=== PATIENT | male | born 1955 | race American Indian/Alaskan Native ===

== ENCOUNTER 2019-05-03 16:46 | Emergency (ER) | payer OTHER ==
[2019-05-03] MEDS ORDERED: IPRATROPIUM 0.02% NEBU 2.5 ML IH ONE (18:32)
[2019-05-03] MEDS ORDERED: ALBUTEROL 2.5 MG/3 ML NEBU IH ONE (18:32)
[2019-05-03] MEDS ORDERED: dexAMETHasone 20 MG/5 ML VIAL IV ONE (18:32)
--- NOTE | 2019-05-03 18:32 | Event Note ---
ED Screening Note ED Screening Note: right sided chest pain that began 4 days ago states it hurts to breathe and worse with movements and coughing +cough cloudy sputum production +wheezing +sob PMHx COPD uses albuterol inhaler +smoker This initial assessment/diagnostic orders/clinical plan/treatment(s) is/are subject to change based on patients health status, clinical progression and re- assessment by fellow clinical providers in the ED. Further treatment and workup at subsequent clinical providers discretion. Patient/guardian urged not to elope from the ED as their condition may be serious if not clinically assessed and managed. Initial orders include: CXR, labs, neb tx, steroids
--- NOTE | 2019-05-03 19:06 | XRay Report ---
CHEST 2 VIEWS INDICATION / CLINICAL INFORMATION: productive cough, sob, hx of COPD. COMPARISON: 06/09/2014 FINDINGS: SUPPORT DEVICES: None. HEART / MEDIASTINUM: No significant abnormality. LUNGS / PLEURA: No significant pulmonary or pleural abnormality. No pneumothorax. There is minimal at electasis or scarring at the left costophrenic angle. ADDITIONAL FINDINGS: No significant additional findings. IMPRESSION: 1. No acute findings. Signer Name: Yasir Amezcua MD Signed: 05/03/2019 7:02 PM Workstation Name: [id number]
[2019-05-03 19:21] LABS: Basophils # (Auto) 0.1 K/mm3 (0.0-0.1); Basophils % (Auto) 1.2 % (0.0-1.8); Eosinophils # (Auto) 0.1 K/mm3 (0.0-0.4); Eosinophils % (Auto) 0.8 % (0.0-4.3); Hematocrit 45.5 % (35.5-45.6); Hemoglobin 15.2 gm/dl (11.8-15.2); Lymphocytes # (Auto) 2.1 K/mm3 (1.2-5.4); Lymphocytes % (Auto) 27.1 % (13.4-35.0); Mean Corpuscular HGB Conc 34 % (32-34); Mean Corpuscular Volume 89 fl (84-94); Monocytes % (Auto) 12.6 % (0.0-7.3); Platelet Count 302 K/mm3 (140-440); Red Blood Count 5.11 M/mm3 (3.65-5.03); Red Cell Distribution Width 15.1 % (13.2-15.2)
[2019-05-03 19:46] LABS: Alanine Aminotransferase 20 units/L (7-56); Albumin 4.2 g/dL (3.9-5); BUN/Creatinine Ratio 11; Blood Urea Nitrogen 11 mg/dL (9-20); Calcium 9.4 mg/dL (8.4-10.2); Hemolysis Index 7
--- NOTE | 2019-05-03 21:07 | Emergency Department Report ---
ED General Adult HPI - General Chief complaint: Chest Pain Stated complaint: CP/SOB Time Seen by Provider: 05/03/19 18:29 Source: patient Mode of arrival: Ambulatory Limitations: No Limitations - History of Present Illness Initial comments: Patient is 63 years old male with history of COPD. Patient presented to the ER complaining of right lower chest pain and right upper quadrant pain for the last 4 days. Patient stated the pain is sharp increase with inspiration. Patient also stated that he has been coughing a lot with greenish sputum. Patient denied any shortness of breath, fever or chills. Patient stated that he has been taking his albuterol for wheezing. Patient denied any nausea, vomiting or diarrhea. - Related Data Previous Rx's Medication Instructions Recorded Last Taken Type Azithromycin [Zithromax Z-TRISTIN] 250 mg PO DAILY #6 tablet 06/10/14 Unknown Rx Tiotropium [Spiriva] 1 caplet PO PRN PRN #1 box 06/10/14 Unknown Rx oxyCODONE /ACETAMINOPHEN [Percocet 1 tab PO Q6H PRN #20 tablet 06/10/14 Unknown Rx 5/325 mg] Amoxicillin/K Clav Tab [Augmentin 1 tab PO BID #14 tablet 06/12/14 Unknown Rx 875MG] Nicotine [Habitrol] 21 mg TD QDAY #30 patch 06/12/14 Unknown Rx Allergies Allergy/AdvReac Type Severity Reaction Status Date / Time No Known Allergies Allergy Verified 06/07/14 06:19 ED Review of Systems ROS: Stated complaint: CP/SOB Other details as noted in HPI Comment: All other systems reviewed and negative Constitutional: denies: chills, fever Respiratory: wheezing Cardiovascular: denies: chest pain, palpitations, dyspnea on exertion Gastrointestinal: abdominal pain. denies: nausea, vomiting, diarrhea, constipation, hematemesis, melena, hematochezia Musculoskeletal: denies: back pain Neurological: denies: headache, weakness, numbness, paresthesias, confusion, abnormal gait ED Past Medical Hx - Past Medical History Hx Asthma: Yes Hx COPD: Yes Additional medical history: pneumonia - Surgical History Additional Surgical History: Right temporal surgery - 1973 - Social History Smoking Status: Current Some Day Smoker Substance Use Type: Alcohol - Medications Home Medications: Home Medications Medication Instructions Recorded Confirmed Last Taken Type Azithromycin [Zithromax Z-TRISTIN] 250 mg PO DAILY #6 tablet 06/10/14 Unknown Rx Tiotropium [Spiriva] 1 caplet PO PRN PRN #1 box 06/10/14 Unknown Rx oxyCODONE /ACETAMINOPHEN [Percocet 1 tab PO Q6H PRN #20 tablet 06/10/14 Unknown Rx 5/325 mg] Amoxicillin/K Clav Tab [Augmentin 1 tab PO BID #14 tablet 06/12/14 Unknown Rx 875MG] Nicotine [Habitrol] 21 mg TD QDAY #30 patch 06/12/14 Unknown Rx ED Physical Exam - General Limitations: No Limitations General appearance: alert, in no apparent distress - Head Head exam: Present: atraumatic, normocephalic, normal inspection - Eye Eye exam: Present: normal appearance - ENT ENT exam: Present: normal exam, normal orophraynx, mucous membranes moist - Neck Neck exam: Present: normal inspection, full ROM. Absent: tenderness, meningismus, lymphadenopathy, thyromegaly - Respiratory Respiratory exam: Present: wheezes, chest wall tenderness (Right lower chest tenderness). Absent: respiratory distress, rales, rhonchi - Cardiovascular Cardiovascular Exam: Present: regular rate, normal rhythm, normal heart sounds - GI/Abdominal GI/Abdominal exam: Present: soft, tenderness (Right upper quadrant tenderness), normal bowel sounds. Absent: distended, guarding, rebound, rigid, organomegaly, mass, bruit, pulsatile mass, hernia - Extremities Exam Extremities exam: Present: normal inspection, full ROM, normal capillary refill. Absent: pedal edema, calf tenderness - Back Exam Back exam: Present: normal inspection, full ROM. Absent: CVA tenderness (R), CVA tenderness (L), muscle spasm, paraspinal tenderness, vertebral tenderness - Neurological Exam Neurological exam: Present: alert, oriented X3, CN II-XII intact, normal gait, reflexes normal. Absent: motor sensory deficit - Psychiatric Psychiatric exam: Present: normal mood - Skin Skin exam: Present: warm, intact, normal color ED Course Vital Signs 05/03/19 05/03/19 05/03/19 17:17 21:04 21:16 Temperature 98.2 F 98 F Pulse Rate 95 H 83 84 Respiratory 18 26 H 20 Rate Blood Pressure 148/81 142/81 Blood Pressure 142/81 [left arm] O2 Sat by Pulse 95 94 94 Oximetry 05/03/19 05/03/19 05/03/19 21:30 21:46 22:00 Temperature Pulse Rate 87 86 83 Respiratory 26 H 23 21 Rate Blood Pressure 127/82 148/85 146/91 Blood Pressure [left arm] O2 Sat by Pulse 90 88 90 Oximetry 05/03/19 05/03/19 05/03/19 22:15 22:40 22:45 Temperature Pulse Rate 83 87 84 Respiratory 18 17 14 Rate Blood Pressure 143/90 132/81 143/74 Blood Pressure [left arm] O2 Sat by Pulse 91 90 Oximetry 05/03/19 23:00 Temperature Pulse Rate 83 Respiratory 16 Rate Blood Pressure 143/74 Blood Pressure [left arm] O2 Sat by Pulse 93 Oximetry ED Medical Decision Making - Lab Data Result diagrams: 05/03/19 18:51 05/03/19 18:51 - EKG Data -: EKG Interpreted by Me EKG shows normal: sinus rhythm Rate: normal - EKG Data Interpretation: no acute changes - Radiology Data Radiology results: report reviewed - Medical Decision Making Patient is 63 years old male with history of COPD. Patient presented to the ER complaining of right lower chest pain and right upper quadrant pain for the last 4 days. Patient stated the pain is sharp increase with inspiration. Patient also stated that he has been coughing a lot with greenish sputum. Patient denied any shortness of breath, fever or chills. Patient stated that he has been taking his albuterol for wheezing. Patient denied any nausea, vomiting or diarrhea. Patient received morphine and Zofran. Patient stated that he is feeling much better. EKG is unremarkable. Chest x-ray is negative for acute finding. CTA chest showed no evidence of pulmonary embolism or any other significant pathology. Gallbladder ultrasound is unremarkable. Patient pain is most likely musculoskeletal secondary to continuous cough however patient also advised to follow-up with his primary care physician in the next 2 to 3 days and to return to the ER if he develop any new symptoms. Critical care attestation.: If time is entered above; I have spent that time in minutes in the direct care of this critically ill patient, excluding procedure time. ED Disposition Clinical Impression: COPD (chronic obstructive pulmonary disease) with emphysema, Abdominal pain Disposition: DC-01 TO HOME OR SELFCARE Is pt being admited?: No Condition: Stable Instructions: Chronic Obstructive Pulmonary Disease (ED), Chest Pain (ED) Referrals: ALIREZA ESCALERA MD [Primary Care Provider] - 3-5 Days
[2019-05-03] MEDS ORDERED: MORPHINE 4 MG/1 ML INJ IV ONE (21:09)
[2019-05-03] MEDS ORDERED: ONDANSETRON 4 MG/2 ML INJ IV ONE (21:09)
[2019-05-03 21:33] LABS: INR 0.99 (0.87-1.13)
[2019-05-03 21:35] LABS: Bilirubin,Urine NEG (Negative); Blood,Urine NEG (Negative); Color,Urine Yellow (Yellow); Mucus,Urine FEW /HPF; Protein,Urine <15 mg/dL mg/dL (Negative); Urobilinogen,Urine < 2.0 mg/dL (<2.0)
[2019-05-03 22:52] VITALS: BP 143/74
--- NOTE | 2019-05-03 23:00 | Ultrasound Report ---
ULTRASOUND ABDOMEN, LIMITED (RIGHT UPPER QUADRANT) INDICATION: Right upper quadrant pain. COMPARISON: None available. FINDINGS: Pancreas: Not well seen. A small amount of pancreas visualized is unremarkable Liver: The liver measures 17 cm in length. There is a 1.8 cm cyst in the left lobe. Gallbladder: Normal. Bile ducts: Normal. Common Bile Duct measures 6 mm. Free fluid: None. Additional Findings: None. IMPRESSION: 1. No acute sonographic abnormality of the right upper quadrant. Signer Name: Mo Hurley MD Signed: 05/03/2019 10:56 PM Workstation Name: [id number]
--- NOTE | 2019-05-03 23:08 | Cat Scan Report ---
CTA of the chest with 3D Reconstruction Indication: ,CHEST PAIN WITH SOB Technique: TECHNIQUE: Axial CT images were obtained through the chest after injection of 100 cc of Omnipaque 350 IV contrast. 3 plane MIP reconstructions were produced. All CT scans at this location are performed using CT dose reduction for ALARA by means of automated exposure control. COMPARISON: None Automatic exposure control was utilized in an attempt to reduce radiation dose. Findings: Pulmonary arteries: The main pulmonary artery and right and left pulmonary artery branches fill satis factorily with contrast. No pulmonary embolus is seen. Lungs: There is mild bronchiectasis in the lung bases. There is linear atelectasis or scar in the zachary g bases. There is peripheral interstitial disease which is more prominent in the upper lobe. Mediastinum: Heart size is normal. No adenopathy is seen. Aorta: Normal in diameter. No dissection seen within limits of this exam. Hepatic cysts are noted. Impression: No pulmonary embolus is seen There is bronchiectasis in the lung bases. There is linear scar or atelectasis in the lower lobes. Th ere is mild peripheral interstitial disease which is upper lobe predominant. Signer Name: Mo Hurley MD Signed: 05/03/2019 11:04 PM Workstation Name: [id number]
== END 2019-05-03 23:54 | disposition home or self-care (01) ==
LOC: ED 16:46
DX: J43.9 Emphysema, unspecified (principal); R10.11 Right upper quadrant pain; F17.200 Nicotine dependence, unspecified, uncomplicated; Z79.899 Other long term (current) drug therapy
CPT/HCPCS: 36415; 71046; 71275; 76705; 80053; 81001; 85025; 85379; 85610; 85730; 93005; 93010; 96374; 96375; 99284; J2270; J2405; Q9967